=== PATIENT | male | born 1940 | race Caucasian/White ===

== ENCOUNTER → 2017-03-09 | Outpatient (CLI) | payer OTHER ==
[~2017-03-09] VITALS: Ht 185.4 cm; Wt 126.1 kg
[~2017-03-09] MED LIST: ACAMPROSATE CA333 MG PO; ALLOPURINOL; ALLOPURINOL 30300 M2 PO; ALLOPURINOL 30300 M3 PO; AMBIEN 5 MG TABL5 M1 PO; APAP650 PO; ATENOLOL; ATENOLOL 50 MG50 M1 PO; AVAPRO; AVAPRO300 MG PO; CARDURA4 MG PO; CARISOPRODOL 3350 MG PO; CENTRUM SILVER1 EAC4 PO; COUMADIN 5 MG TA5 M1 PO; COUMADIN7.5 MG PO; FISH OIL 1,0001 EAC7 PO; FISH OIL 1,001000 M1 PO; FISH OIL 1,2001 EAC5 PO; FLEXERIL PO; GLUCOPHAGE500 MG PO; HYDROCHLOROTH12.5 M1 PO; HYDROCHLOROTH12.5 MG PO; HYDROCODON-ACE1 EAC5 PO; HYDROCODONE-AP1 EAC6 PO; MELATONIN10 M2 PO; MOBIC7.5 MG PO; NORCO 10-325 T1 EACH PO; PRILOSEC40 MG PO; SIMVASTATIN40 MG PO; TUMS PO; TYLENOL P.M. E1 EAC3 PO; TYLENOL PM PO; VALSARTAN-HCTZ1 EAC4 PO; VITAMIN B-12500 MCG PO; VITAMIN D1000 UNI1 PO; VOLTAREN GEL 1100 G1 TOP; VOLTAREN100 GM TP; ZANAFLEX2 M2 PO; ZANAFLEX4 MG PO; ZEGERID 20 MG1 EACH PO
--- NOTE | ~2017-03-09 | HPC ---
[facility] [place] [address] PAIN MANAGEMENT CONSULTATION Name: CINTHYA SORENSON Room #: REG KIEL Stark#: [id number] Admission: 03/09/17 Attend Phys: Tr Razo DO Discharge: Date of : 39 Report #: [id number] THIS REPORT FOR: //name// CC: Leo Razo SUBJECTIVE: The patient is a very pleasant 76-year-old gentleman, well known to the pain clinic, being treated for many years for lumbar radiculopathy, myofascial pain requiring complex medication management. Last seen in the pain clinic on 10/09/2016, was given a prescription for 90 hydrocodone 5/325. He returns to the pain clinic today, we had a moderately prolonged visit from [id number]. Greater than 50% of this time spent counseling the patient. 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 I did run a K-TRACS and noted no opiate prescriptions for the patient. Again, I believe he does live in [place] and fills those prescriptions in [place]. Nonetheless, he presents to the pain clinic today noting recurrent pain in the back and left shoulder, remains problematic, though is well controlled. He uses hydrocodone on a nondaily basis. Voltaren gel topically has been quite efficacious. He takes Coumadin for atrial fibrillation, contraindicating oral use of nonsteroidal anti-inflammatory medications. 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 He states he is working for 4 or 5 days a week, on his feet a great deal and states he is doing reasonably well from a pain standpoint. States walking has never been a very good exercise for him. He is having more trouble rising from a chair without using the armrest and lifting his leg to tie his shoes. We talked about exercises including simply marching in place, both from sitting and standing positions for increased strength in hip flexion. The patient does have an exercise device, which sounds somewhat like a NordicTrack, type of exercise involving the arms and legs. I suggested he continue with that exercise endeavor. We reviewed the fact that opiate medications are being used to provide analgesia adequate to support activities of daily living, not attempting to achieve a specific pain score on the 0-10 Visual Analog Scale. The current opiate medications are providing sufficient analgesia to allow the patient to participate in activities of daily living. The patient is not exhibiting any aberrant behavior suggestive of drug diversion. The patient is not having any adverse reactions to medications. The patient is not suffering from daytime somnolence or mental acuity changes. The patient is managing opiate-induced constipation with appropriate pwog-ysr-mxdqpsy agents and dietary considerations. The patient was counseled on concern for caution with operating a motor vehicle while using opiate medications. A physical exam was performed and the patient's functional status was evaluated. [address] [address] PAIN MANAGEMENT CONSULTATION Name: CINTHYA SORENSON Room #: REG KIEL Stark#: [id number] Admission: 03/09/17 Attend Phys: Tr Razo DO Discharge: Date of : 39 Report #: [id number] All patients with back pain were advised against the bed rest greater than 4 days and were advised to return to normal activities. Pain score assessment was noted and the treatment plan was reviewed with the patient. All current medications, both prescribed and OTC were reviewed and reconciled on the electronic medical record. Tobacco screening was accomplished and smoking cessation was advised when indicated. BMI was noted and diet/exercise modification was recommended for all patients following outside normal parameters. I reviewed with the patient today their responsibilities to safeguard prescription medications, reviewed their responsibility to utilize medications only as prescribed by the physician. They are to seek and receive pain medications only from 1 physician group ( [facility]). They are to use 1 pharmacy and keep the clinic informed if they change pharmacies. Their responsibilities include making followup visits in a timely fashion and to avoid abrupt discontinuation of medication usage. Their responsibilities further include bringing their medications (bottles from the pharmacy with residual pills) to the visit for possible confirmation of pill counts and the patient understands it is their responsibility to submit to random drug screens to ensure both that the medications prescribed are present, and that no other controlled substances are present. All prescriptions provided today were generated electronically. I did review the opiate zbnxdfp-ww-rjeom contract today. We did get a urine drug screen today. No aberrant behavior is suggestive for drug diversion, simply complying with the opiate zyybvrr-bq-rmcma contract. PHYSICAL EXAMINATION: Otherwise, relatively unremarkable. GENERAL: Modest hypertension, alert and oriented to person, place, and time, judged to be a reasonable historian. Loquacious gentleman, modestly overweight with a BMI of approximately 34 kg per m sq. EXTREMITIES: Upper extremity strength is preserved. pain in the left shoulder, modest limitation in range of motion. Rises from chair using the armrest. Gait is mildly antalgic. Again, does have a little decrease in left and right hip flexion strength. Lumbar flexion is modestly limited, diffuse tenderness across the low back. No discrete trigger points are noted. Gait is otherwise tandem. 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 Urine drug screen was accomplished today. Opiate jalcrwy-tn-ydqdi contract was reviewed. Discharged in good and stable condition after approximately 25-minute visit, [id number]. By: [id number] Tr Razo DO /nt
[2017-03-09 12:46] VITALS: BP 164/73
== END | disposition home or self-care (01) ==
LOC: PAIN 06:54
DX: M54.16 Radiculopathy, lumbar region (principal); M79.1 Myalgia; G89.29 Other chronic pain

== ENCOUNTER 2017-08-16 08:01 | Emergency (ER) | payer OTHER ==
[~2017-08-16] VITALS: Ht 185.4 cm; Wt 121.6 kg
[2017-08-16] MEDS ORDERED: PENICILLIN V P500 MG PO (09:30)
[2017-08-16] MEDS ORDERED: NORCO 5-325 TA1 EACH PO (09:30)
== END 2017-08-16 09:39 | disposition home or self-care (01) ==
LOC: ER 08:01
DX: K04.7 Periapical abscess without sinus (principal); M19.90 Unspecified osteoarthritis, unspecified site; I10 Essential (primary) hypertension; E11.9 Type 2 diabetes mellitus without complications; E78.00 Pure hypercholesterolemia, unspecified; M10.9 Gout, unspecified; I48.91 Unspecified atrial fibrillation; Z90.49 Acquired absence of other specified parts of digestive tract

== ENCOUNTER → 2017-11-12 | Outpatient (CLI) | payer OTHER ==
[~2017-11-12] VITALS: Ht 185.4 cm; Wt 125.8 kg
[~2017-11-12] MED LIST changes: +NORCO 5-325 TA1 EACH PO; +PENICILLIN V P500 MG PO
--- NOTE | ~2017-11-12 | HPC ---
[facility] [place] [address] PAIN MANAGEMENT CONSULTATION Name: CINTHYA SORENSON Room #: REG [facility] Mi#: [id number] Admission: 11/12/17 Attend Phys: Tr Razo DO Discharge: Date of : 39 Report #: [id number] THIS REPORT FOR: //name// CC: Leo Razo The patient is a 77-year-old gentleman long known to the pain clinic, being treated for lumbar radiculopathy, myofascial pain, axial back pain requiring high risk complex medication management. The patient had been managed with hydrocodone on fairly aggressive dosing. He had been drinking concurrently unbeknownst to me. Ultimately, he was somewhat lost to follow up. He got sober a year and a half ago. He voluntarily admitted himself to rehabilitation. I ran a K-TRACS when I saw him in February (he had prior been seen in 09/2016). K-TRACS was unremarkable. Physical exam was compatible with lumbar radiculopathy, myofascial pain and chronic axial pain. We did a urine drug screen at that time, which was negative for all opiates and negative for alcohol. I elected to start the patient on low dose hydrocodone 5/325, gave the patient prescription for 90 tablets. He returns to the pain clinic today. He still has a few hydrocodone left. He takes them infrequently. He notes that they are helpful for significant back pain. He notes the pain is exacerbated with bending forward. He notes he can lift reasonably well. No acute SI pain at this time. Some episodic left shoulder pain continues. He uses Coumadin for atrial fibrillation hence oral anti-inflammatories are contraindicated though he does use Voltaren gel topically with efficacy. The patient notes subjective pain score today is a 3.5 on a VAS. Pain primarily low back, some left arm pain, which is new. Low back pain is chronic. PHYSICAL EXAMINATION: Shows a 77-year-old gentleman with BMI is 36.6 kilograms per meter squared. Blood pressure 161/66, pulse 55, respirations 16. Cranial nerves 2 through 12 are grossly intact. He is alert and oriented to person, place and time and judged to be a reasonable historian. Upper extremity strength is actually fairly symmetric. Range of motion is good. He has some diffuse tenderness around the deltoid, but no discrete trigger points are noted. Rises from chair using arm rest. Diffuse axial back pain, lumbar radiculopathy, symptoms are relatively quiescent at this time. We reviewed the fact that opiate medications are being used to provide analgesia adequate to support activities of daily living, not attempting to achieve a specific pain score on the 0-10 Visual Analog Scale. The current opiate medications are providing sufficient analgesia to allow the patient to participate in activities of daily living. The patient is not exhibiting any [address] [address] PAIN MANAGEMENT CONSULTATION Name: CINTHYA SORENSON Martha Room #: REG KIEL Stark#: [id number] Admission: 11/12/17 Attend Phys: Tr Razo DO Discharge: Date of : 39 Report #: [id number] aberrant behavior suggestive of drug diversion. The patient is not having any adverse reactions to medications. The patient is not suffering from daytime somnolence or mental acuity changes. The patient is managing opiate-induced constipation with appropriate fyrj-sdz-zyqfqub agents and dietary considerations. The patient was counseled on concern for caution with operating a motor vehicle while using opiate medications. A physical exam was performed and the patient's functional status was evaluated. All patients with back pain were advised against the bed rest greater than 4 days and were advised to return to normal activities. Pain score assessment was noted and the treatment plan was reviewed with the patient. All current medications, both prescribed and OTC were reviewed and reconciled on the electronic medical record. Tobacco screening was accomplished and smoking cessation was advised when indicated. BMI was noted and diet/exercise modification was recommended for all patients following outside normal parameters. I reviewed with the patient today their responsibilities to safeguard prescription medications, reviewed their responsibility to utilize medications only as prescribed by the physician. They are to seek and receive pain medications only from 1 physician group ( [facility]). They are to use 1 pharmacy and keep the clinic informed if they change pharmacies. Their responsibilities include making followup visits in a timely fashion and to avoid abrupt discontinuation of medication usage. Their responsibilities further include bringing their medications (bottles from the pharmacy with residual pills) to the visit for possible confirmation of pill counts and the patient understands it is their responsibility to submit to random drug screens to ensure both that the medications prescribed are present, and that no other controlled substances are present. All prescriptions provided today were generated electronically. ASSESSMENT: Lumbar radiculopathy, axial back pain, myofascial pain component, requiring high risk complex medication management, stable on baseline medication. RECOMMENDATION: Renew p.r.n., hydrocodone 5/325, I have taken the liberty of writing for 90 tablets. This should last about 4 months. We will renew Voltaren gel for topical use. Follow up as needed. By: [id number] Tr Razo, DO /nt
[2017-11-12 12:43] VITALS: BP 161/66
== END ==
LOC: PAIN 07:12
DX: M54.16 Radiculopathy, lumbar region (principal); M79.1 Myalgia; I48.91 Unspecified atrial fibrillation; Z79.899 Other long term (current) drug therapy; Z79.01 Long term (current) use of anticoagulants

== ENCOUNTER → 2018-05-11 | Outpatient (CLI) | payer OTHER | LOC: CAT 11:47 | DX: I25.10 Atherosclerotic heart disease of native coronary artery without angina pectoris (principal); J98.4 Other disorders of lung; Z90.49 Acquired absence of other specified parts of digestive tract ==

== ENCOUNTER → 2018-06-11 | Outpatient (CLI) | payer OTHER ==
[~2018-06-11] VITALS: Ht 185.4 cm; Wt 125.5 kg
[~2018-06-11] MED LIST changes: +MEDROLDOSEPACK PO
--- NOTE | ~2018-06-11 | HPC ---
[facility] [place] [address] [address] [place] [address] PAIN MANAGEMENT CONSULTATION Name: YASCINTHYA Martha Room #: REG KIEL Mi#: [id number] Admission: 06/11/18 Attend Phys: Angie Batres MD Discharge: Date of : 39 Report #: [id number] THIS REPORT FOR: //name// CC: Angie Vinson DATE OF SERVICE: 06/11/2018 FOLLOWUP COMPLAINT: "Pain in the right side of my leg, which is bad when I am walking." FOLLOWUP HISTORY: The patient is a 77-year-old gentleman who has been followed in the pain clinic by Mayank Razo. This is my first visit with the patient. He states that he is having pain and discomfort in his back in the past. He has undergone injections by Dr. Razo. That had been helpful. At this juncture, he is having pain and discomfort radiating down the right side of his leg near his knee. Certain movements of his leg can exacerbate the pain and caused it to become quite problematic. Notes that the pain is worse when he is going from a sitting to a standing position. Movement and changing positions such as rolling over in bed can be problematic as well. Notes that the pain has gotten a bit worse over the last 3-4 weeks. He is having pain, which is so severe. He is unable to bend over to tie his shoe. He finds that the diclofenac medication is helpful. He does have a history of osteoarthritis, but no history of rheumatoid arthritis. ALLERGIES: No known drug allergies. MEDICATIONS: Hydrocodone 5/325 one p.o. t.i.d., Voltaren gel 1% to the affected topical areas q.i.d., acetaminophen 750 mg 1 tablet daily, warfarin 5 mg, he takes 6 mg daily, fish oil, vitamin B12 500 mcg, vitamin D 1000 units, multivitamin, Centrum, valsartan/hydrochlorothiazide 320/12.5, Cardura 4 mg, allopurinol 300 mg, Prilosec 40 mg, Zocor 40 mg, atenolol 50 mg, Glucophage 500 mg daily. PAST MEDICAL HISTORY: Atrial fibrillation, history of rheumatic fever, diabetes, hypertension, joint disease/arthritis, history of myofascial pain, sacroiliac joint dysfunction. History of symptomatic lumbar radiculopathy, lumbar spondylosis, and atrial fibrillation. SOCIAL HISTORY: He is a retired with [employer]. Moved to [place]. 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 LABORATORY DATA: On 08/07/2007, shows facet arthropathy and ligamentum thickening causing mild spinal stenosis at L3-L4 and moderate spinal stenosis at L4-L5 with some inferior foraminal narrowing at this level. No lateralizing disk herniation or high grade spinal stenosis identified at any level. A 0.[address] [address] PAIN MANAGEMENT CONSULTATION Name: CINTHYA SORENSON Martha Room #: [id number] Admission: 06/11/18 Attend Phys: Angie Batres MD Discharge: Date of : 39 Report #: [id number] hyperintense focus in the right sacral ala, which is indeterminate on this study. CT of the abdomen and pelvis dated 09/02/2009 revealed numerous diverticula in the descending colon and sigmoid colon. Sigmoid colon is redundant with no evidence of inflammation or abscess or free air. PAIN CLINIC ASSESSMENT: 1. History of osteoarthritis involving his low back. 2. The patient denies being treated for rheumatoid arthritis. 3. Height 6 feet 1 inch, weight 276 pounds, BMI is 36. 4. Vital signs: Blood pressure 176/80, pulse 87, respiratory rate 18, room air saturation 98%. 5. Pain intensity 08/02. 6. Fall risk. The patient has not fallen in the last 3 months. 7. Blood thinner. The patient has a history of atrial fibrillation and is using Coumadin. 8. Hypertension. The patient is being treated for hypertension. 9. Opioid therapy greater than 6 weeks. The patient is receiving opioid medications intermittently from the pain clinic. 10. Risk assessment tool. 11. Functional assessment tool. 12. Recreational drug use. The patient denies use of recreational drugs. 13. Tobacco: The patient denies use of tobacco. 14. Alcohol use. 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 PHYSICAL EXAMINATION: GENERAL: The patient is a well-developed, somewhat obese white male, appears his stated age. He is alert and oriented x 3. He is quite loquacious. He appears his stated age. HEENT: Normocephalic, atraumatic. Extraocular eye muscles intact. Sclerae nonicteric. Hearing is within normal limits. Mucous membranes are moist. NECK: Without adenopathy or JVD. LUNGS: Clear to auscultation. ABDOMEN: Protuberant. HEART: Regular rate upper extremity in the Upper extremity muscle strength is judged to be 5/5 for the major muscle groups without neurologic compromise. The patient has some difficulty moving from his chair to the examination table. When going from a sitting to a standing position he complains of pain and discomfort in the right lateral area near his knee. This is near the tensor fascia lorie on the ____ area. Palpation in this area can reproduce a significant component of pain. The patient is not experiencing pain which is in the traditional lumbar radicular fashion in the L5-S1 area. He denies that this pain for more than about 3-4 weeks. Denies any trauma. He has a plethora of varicose veins on the anterior calf area. He complains of difficulty leaning forward for enough to put his shoe. He notes worsening of his pain and discomfort if he lifts his foot up greater than 6 inches. [facility] [address] [place] [address] PAIN MANAGEMENT CONSULTATION Name: CINTHYA SORENSON Martha Room #: REG [facility]#: [id number] Admission: 06/11/18 Attend Phys: Angie Batres MD Discharge: Date of : 39 Report #: [id number] IMPRESSION: 1. Right pain in the area of the lateral tensor fascia lorie area down to the right knee. Palpation in this area does cause a reproduction of pain and discomfort. The patient does not have a clear-cut dermatomal distribution of his pain. The patient does have some pain and discomfort in the low back area. Palpation in this area near the posterior superior iliac spine areas are somewhat sore. The patient rates his pain as a 9/0. The patient notes increased pain and discomfort when lying on the left lateral decubitus position. Straightening and bending his leg can reproduce pain and discomfort in the lateral portion of his right knee. 2. Pain and discomfort in the right lateral knee. Possible myofascial component. 3. History of axial back pain. 4. History of lumbar radiculopathy. 5. Myofascial pain. 6. History of ethanol habituation, has not used since 2014. RECOMMENDATIONS: We discussed treatment options with the patient. He will return to the pain clinic at which time we will evaluate his right knee area for possibility of injection. We will try a Medrol Dosepak at this juncture. He has also been given Voltaren gel to apply to the affected areas. He states that the [place] 5 mg t.i.d. is helpful as well. He has been using these very sparingly. We would like to thank you for letting us participate in his care. We hope he continues to improve. By: [id number] Angie Batres MD /lana
[2018-06-11 10:14] VITALS: BP 176/80
== END ==
LOC: PAIN 06:49
DX: M79.604 Pain in right leg (principal); M79.1 Myalgia; I10 Essential (primary) hypertension; E11.9 Type 2 diabetes mellitus without complications; I48.91 Unspecified atrial fibrillation

== ENCOUNTER → 2018-09-03 | Outpatient (CLI) | payer OTHER ==
[~2018-09-03] VITALS: Ht 185.4 cm; Wt 126.9 kg
--- NOTE | ~2018-09-03 | HPC ---
[facility] [place] [address] PAIN MANAGEMENT CONSULTATION Name: YASCINTHYA Martha [facility] #: [facility] [id number] Admission: 09/03/18 Attend Phys: Angie Batres MD Discharge: Date of : 39 Report #: [id number] THIS REPORT FOR: //name// CC: Angie Vinson DATE OF SERVICE: 09/03/2018 CHIEF COMPLAINT: Pain in the low back area. I am unable to bend over and tie my shoe because of the back pain. HISTORY OF PRESENT ILLNESS: The patient is a 77-year-old gentleman, who has been followed in the pain clinic. He has noted some pain and discomfort in his low back area. He states that he has noted some increased pain in his back. He is unable to bend over to tie his shoe. His has to put his socks on. He notes that his pain is exacerbated by this discomfort. He rates it as a 3/10 at this juncture. He denies any new trauma. It involves his right low back area and right side. He notes some pain in his right knee and right leg. He notes that this has been chronic. He has stopped taking his Coumadin and has an INR of 1.1 with the thought of undergoing an injection. He has had SI joint injections in the past and found that they were beneficial. He notes that the pain is worse with walking, bending, standing, and getting up and down. He has difficulty moving from a chair to a standing position as well as using the bathroom, getting of stool. CURRENT MEDICATIONS: The patient is on hydrocodone 5/325 one p.o. t.i.d., Voltaren gel 1% to the affected area topically q.i.d., acetaminophen 750 mg 1 p.o. daily, warfarin 5 mg, the patient has not taken this for the last few days; fish oil, vitamin B12 500 mcg, vitamin D 1000 units, multivitamin, Centrum, valsartan/hydrochlorothiazide 320/12.5, Cardura 4 mg, allopurinol 300 mg, Prilosec 40 mg, Zocor 40 mg, atenolol 50 mg, and Glucophage 500 mg daily. ALLERGIES: The patient has no known drug allergies. PAIN CLINIC ASSESSMENT AND PQRS: 1. History of osteoarthritis involving his low back. 2. The patient is not being treated for rheumatoid arthritis. 3. Pain intensity is 3/10. 4. Fall risk. The patient has not fallen in the last 3 months. 5. Blood thinner. The patient is on Coumadin, has stopped taking this medication for the last few days. 6. Hypertension. The patient is being treated for hypertension. 7. Opiate therapy greater than 6 weeks. The patient is receiving medications from 1 source, pain clinic. 8. Risk assessment tool 6, moderate risk for use of opioid medication. 9. Functional assessment tool, . [address] [address] PAIN MANAGEMENT CONSULTATION Name: YASCINTHYA Room #: REG CLhSakir Stark#: [id number] Admission: 09/03/18 Attend Phys: Angie Batres MD Discharge: Date of : 39 Report #: [id number] 10. Recreational drug use. The patient denies use of recreational drugs. 11. Alcohol: The patient use alcohol in the past. 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 12. Tobacco: The patient denies use of tobacco at this juncture. PHYSICAL EXAMINATION: GENERAL: The patient is a well-developed and well-nourished white male. He appears his stated age. He is alert and oriented. He is somewhat obese. His is with him. He is somewhat loquacious. He and his appear to get along quite well. Height is 6 feet 1 inch, weight is 279 pounds, and BMI is 36.9. VITAL SIGNS: Blood pressure is 155/83, pulse is 57, respiratory rate is 22, and room air saturation is 96%. HEENT: Normocephalic, atraumatic. Extraocular eye muscles intact. Sclerae nonicteric. Hearing is within normal limits. Mucous membranes are moist. NECK: Without adenopathy or JVD. LUNGS: Clear to auscultation. ABDOMEN: Protuberant. Bowel sounds present. HEART: Regular rate. EXTREMITIES: Upper extremity muscle strength is judged to be 5/5 for the major muscle groups. The patient has pain and discomfort in lower portion of his back. He has pain in the area of the left and right paraspinous area at approximately L5-S1. Palpation in this area does cause some reproduction of pain and discomfort. The patient jumps with palpation in this area with noted signs of trigger points. The patient uses hands to go from a sitting to a standing position. He is unable to lean forward touch his toes. He notes significant pain and discomfort with this. IMPRESSION: 1. Myofascial pain, left and right posterior superior iliac spine areas near the gluteus rupert and latissimus dorsi. 2. Pain and discomfort in the right lateral knee, possible myofascial pain. 3. History of axial back pain. 4. History of lumbar radiculopathy. 5. 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 RECOMMENDATIONS: We have discussed treatment options with the patient and his . He has pain and discomfort in the left and right posterior superior iliac spine area. The patient was placed on the examination table perpendicular to it. A chair was placed under his feet. The table was elevated. The patient has leaned forward. Palpation in the area of the left and the right posterior superior iliac spine areas cause the patient to jump with palpation of these areas. He states that both were extremely sore and problematic and seem to be the problem in nidus of his pain at this juncture. Possible complications of a trigger point injection were discussed. A model was used to indicate the area of probable pathology. The patient elects to proceed. [address] [address] PAIN MANAGEMENT CONSULTATION Name: YASCINTHYA Room #: REG [facility] Mi#: [id number] Admission: 09/03/18 Attend Phys: Angie Batres MD Discharge: Date of : 39 Report #: [id number] PROCEDURE NOTE: The patient was placed in the sitting position. His back was sterilely prepped with chlorhexidine solution and it was allowed to dry. Palpation in the right area near the posterior superior iliac spine in the area of the gluteus rupert and latissimus dorsi were palpated. The patient noted a trigger point. A 25-gauge needle was advanced into the area. The patient did reproduce the trigger point complaint. A total of 10 mL of 0.5% bupivacaine and 80 mg of Depo-Medrol was injected. The patient tolerated that area and trigger point injection well. The contralateral left side was then sterilely prepped. It was treated in a like fashion. A 25-gauge needle was advanced into the area of the gluteus rupert posterior superior iliac spine near the latissimus dorsi. Trigger point was noted. Aspiration was negative. A total of 10 mL of 0.5% bupivacaine and 80 mg of Depo-Medrol was injected. The patient remained in the pain clinic for an appropriate amount of time. His pain has decreased to 0 at the time of discharge. He will monitor his blood sugars. He has diabetes. We would like to thank you for letting us to participate in his care. We hope he continues to improve. <ELECTRONICALLY SIGNED> By: Angie Batres MD 09/06/18 1125 [id number] Angie Batres MD /[facility]
[2018-09-03 13:23] VITALS: BP 155/83
== END | disposition home or self-care (01) ==
LOC: PAIN 07:06
DX: M79.10 Myalgia, unspecified site (principal); M54.16 Radiculopathy, lumbar region; M19.90 Unspecified osteoarthritis, unspecified site; Z98.890 Other specified postprocedural states; Z79.01 Long term (current) use of anticoagulants; Z79.899 Other long term (current) drug therapy; Z79.891 Long term (current) use of opiate analgesic; Z79.84 Long term (current) use of oral hypoglycemic drugs

== ENCOUNTER → 2019-04-20 | Outpatient (CLI) | payer OTHER ==
[~2019-04-20] VITALS: Ht 185.4 cm; Wt 125.8 kg
[~2019-04-20] MED LIST changes: +HYDROCODON-ACE1 EAC7 PO; +VOLTAREN GEL 1100 G2 TOP
[2019-04-20 10:52] VITALS: BP 139/73
--- NOTE | 2019-04-20 11:04 | NUR ---
Pain Clinic Assessment: 1. History of Osteoarthritis: B/L KNEE'S History of Rheumatoid Arthritis: NO 2. Height: 6 ft. 1 in. 185.4 cm. Weight: 277.4 lb. oz. 125.828 kg. Patient's BMI: 36.6 3. Vital Signs: BP: 139/73 Pulse: 70 Resp: 20 Temp: 02 Sat: 97 ECG Mon: 4. Pain Intensity: 3-4 5. Fall Risk: Dizziness: N Needs help standing or walking: N Fallen in the last 3 months: N Fall risk comments: 6. Patient on Blood Thinner: Warfarin (Coumadin) 7. History of Hypertension: Y 8. Opioid Therapy greater than 6 weeks: Y Opiate Contract Signed: 03/09/17 9. Risk Assessment Tool Provided: 6-MOD RISK 10. Functional Assessment Tool: 11. Recreational Drug Use: Never Drug Type: Tobacco Use: Never Smoker Tobacco Type: Amount or Packs/day: How Many Years: Alcohol Use: Past use Frequency: Quant:
--- NOTE | 2019-04-21 09:04 | HPC ---
[facility] [address] [place] [address] PAIN MANAGEMENT CONSULTATION Name: CINTHYA SORENSON Martha Room #: REG [facility] Mi#: [id number] Admission: 04/20/19 ������������������ Attend Phys: Tatiana Woodward Discharge: ������������������ Date of : 39 Report #: [id number] THIS REPORT FOR: //name// CC: Tatiana Woodward Leo Vinson DATE OF SERVICE: 04/20/2019 CHIEF COMPLAINT: Low back pain and right leg pain. HISTORY OF PRESENT ILLNESS: This is a very pleasant 78-year-old gentleman who returns to the pain clinic today for a refill of his medication. He tells me that he has ongoing low back pain, mostly on the right side that does radiate into his right leg to his knee. He tells me it is achy, sharp pain that he rates as 3-4, worse with walking and standing, but his medication and injections that he has periodically are very helpful in controlling his pain. 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 Those are the days that he requires a few more pain pills for his back and neck. Otherwise, some days, he is able to get by with a few less pills. He tells me that he has no problems with constipation or daytime sleepiness. ALLERGIES: No known drug allergies. CURRENT LIST OF MEDICATIONS: Hydrocodone 5/325 t.i.d. p.r.n., diclofenac gel 4 times a day, Coumadin 5 mg daily, fish oil, vitamin B12, vitamin D3, multivitamin, valsartan 320 mg daily, Cardura 4 mg daily, allopurinol 300 mg daily, Prilosec 40 mg daily, Zocor 40 mg daily, atenolol 50 mg daily and metformin 500 mg daily. PQRS: 1. The patient has osteoarthritis in his bilateral knees and also in his back. He denies any rheumatoid arthritis. 2. Height is 6 feet 1 inch, weight is 277. BMI is 36. 3. Vital signs: Blood pressure 139/73, pulse is 70, respirations 20, oxygen sat is 97%. 4. Pain score is 3-4. 5. Denies dizziness. Does not need help walking or standing. He has not fallen in the last 3 months. 6. The patient is on Coumadin and does take medication for hypertension. 7. Opioid therapy is greater than 6 weeks; therefore, an opioid signed contract is on the chart. His risk assessment tool is moderate. His functional assessment is 41/70. 8. Recreational drug use, he denies. He is not a smoker and does not drink alcohol. We did check the prescription monitoring system[place] [address] PAIN MANAGEMENT CONSULTATION Name: CINTHYA SORENSON Room #: REG CLShakir Stark#: [id number] Admission: 04/20/19 ������������������ Attend Phys: Tatiana Woodward Discharge: ������������������ Date of : 39 Report #: [id number] appropriately for his medications in a timely fashion. We did check a drug screen on this patient today for random screen as it had been greater than 1 year. PHYSICAL EXAMINATION: GENERAL: This is a well-developed, well-nourished white male who appears his stated age, placing his current pain score today at 3-4/10. He is quite loquacious in his speech, which is very fluent. He is alert and orientated. HEENT: Normocephalic, atraumatic. Extraocular eye muscles are intact. Hearing is within normal limits. Mucous membranes are moist. NECK: Without adenopathy or JVD. EXTREMITIES: Upper extremity strength judged to be 5/5 in all major muscle groups. Does complain of some slight shoulder discomfort today. The patient is able to move from sitting to standing without difficulty. He has tenderness across his lumbar spine. His lower extremity strength is judged to be 5/5 in all major muscle groups. IMPRESSION: 1. Myofascial pain. 2. Pain in lumbar radiculopathy. 3. History of axial back pain. 4. Complex medical management under terms of written opioid agreement. We reviewed the fact that opiate medications are being used to provide analgesia adequate to support activities of daily living, not attempting to achieve a specific pain score on the 0-10 Visual Analog Scale. The current opiate medications are providing sufficient analgesia to allow the patient to participate in activities of daily living. The patient is not exhibiting any aberrant behavior suggestive of drug diversion. The patient is not having any adverse reactions to medications. The patient is not suffering from daytime somnolence or mental acuity changes. The patient is managing opiate-induced constipation with appropriate [id number] agents and dietary considerations. The patient was counseled on concern for caution with operating a motor vehicle while using opiate medications. A physical exam was performed and the patient's functional status was evaluated. All patients with back pain were advised against the bed rest greater than 4 days and were advised to return to normal activities. Pain score assessment was noted and the treatment plan was reviewed with the patient. All current medications, both prescribed and OTC were reviewed and reconciled on the electronic medical record. Tobacco screening was accomplished and smoking cessation was advised when indicated. BMI was noted and diet/exercise modification was recommended for all patients following outside normal parameters. I reviewed with the patient today their responsibilities to [facility] [address] [address] PAIN MANAGEMENT CONSULTATION Name: CINTHYA SORENSON Room #: REG [facility]#: [id number] Admission: 04/20/19 ������������������ Attend Phys: Tatiana Woodward Discharge: ������������������ Date of : 39 Report #: [id number] prescription medications, reviewed their responsibility to utilize medications only as prescribed by the physician. They are to seek and receive pain medications only from 1 physician group ( [facility]). They are to use 1 pharmacy and keep the clinic informed if they change pharmacies. Their responsibilities include making followup visits in a timely fashion and to avoid abrupt discontinuation of medication usage. Their responsibilities further include bringing their medications (bottles from the pharmacy with residual pills) to the visit for possible confirmation of pill counts and the patient understands it is their responsibility to submit to random drug screens to ensure both that the medications prescribed are present, and that no other controlled substances are present. All prescriptions provided today were generated electronically. PLAN: 1. We discussed treatment options with the patient today. The patient feels that the Voltaren gel and the hydrocodone are quite helpful in relieving his pain. Refills given today for hydrocodone 5/325 #90 t.i.d., which is 50 morphine milliequivalent according to the CDC guidelines, way below their limit of 50; therefore, 3 months of medications were given for him. Second medication of Voltaren gel 3 tubes with 3 additional refills. The patient uses this on his lower extremity joints. 2. Dr. Tee Batres did come and see the patient today and collaborated care as well. The patient will return in 3 months' time for refill of medications unless he requires an injection prior to that time. ��������������������������������������������� <ELECTRONICALLY SIGNED> ���������������������������������������� By: Tatiana Woodward ��������������������������������������������� 04/21/19 0904 [id number] [id number] Tatiana Woodward /nt
== END ==
LOC: PAIN 06:48
DX: M79.18 Myalgia, other site (principal); M54.16 Radiculopathy, lumbar region; M79.604 Pain in right leg; Z79.891 Long term (current) use of opiate analgesic; Z79.899 Other long term (current) drug therapy

== ENCOUNTER 2019-08-25 09:44 | Emergency (ER) | payer OTHER ==
[~2019-08-25] VITALS: Ht 185.4 cm; Wt 126.1 kg
[2019-08-25 10:12] LABS: ANION GAP 9 mmol/L (7-16); BUN 17 mg/dL (7-18); CALCIUM 9.5 mg/dL (8.5-10.1); CHLORIDE 95 mmol/L (98-107); CO2 27 mmol/L (21-32); CREATININE 1.1 mg/dL (0.7-1.3); GLUCOSE 152 mg/dL (74-106); INR 1.3; PROTIME 13.5 Seconds (9.3-11.4); SODIUM 131 mmol/L (136-145)
[2019-08-25 10:13] LABS: HEMATOCRIT 39.6 % (42.0-52.0); HEMOGLOBIN 13.2 gm/dL (14.0-18.0); MCH 34.7 pg (26.0-34.0); MCHC 33.3 g/dL (28.0-37.0); MCV 104.4 fL (80.0-100.0); RBC 3.8 mil/uL (4.50-6.00); RDW 13.9 % (10.5-14.5); WBC 4.4 thou/uL (4.0-11.0)
[2019-08-25 10:22] LABS: ALBUMIN 4.2 g/dL (3.4-5.0); DIRECT BILIRUBIN 0.5 mg/dL (<0.1-0.3); LIPASE 104 U/L (73-393); SGOT 39 U/L (15-37); SGPT 21 U/L (30-65); TOTAL BILIRUBIN 2.8 mg/dL (<0.1-1.0); TOTAL PROTEIN 7.7 g/dL (6.4-8.2); TROPONIN-I <0.06 ng/mL (<0.06)
[2019-08-25 11:40] LABS: URINE BILIRUBIN NEGATIVE (Negative); URINE BLOOD NEGATIVE (Negative); URINE CLARITY CLEAR; URINE COLOR YELLOW; URINE GLUCOSE-RANDOM* NEGATIVE (Negative); URINE KETONES NEGATIVE (Negative); URINE NITRITE-REFLEX NEGATIVE (Negative); URINE PROTEIN (DIPSTICK) NEGATIVE (Negative); URINE UROBILINOGEN 0.2 E.U./dl (0.2-1.0)
[2019-08-25 11:43] LABS: URINE LEUKOCYTES-REFLEX 1+ (Negative)
[2019-08-25 11:50] LABS: CASTS None Seen /LPF (None Seen); CRYSTALS None Seen /LPF (None Seen); SQUAMOUS 4-10 Moderate /LPF (0-3); URINE RBC 0-2 Rare /HPF (0-2); URINE WBC-REFLEX 0-5 Rare /HPF (0-5)
[2019-08-25 12:31] VITALS: BP 168/51
--- NOTE | 2019-08-25 12:54 | EKG ---
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1940 Requested By: Maximino Thomas Order Number: [id number] MD: Leon Leung Measurements Intervals [place] Rate: 56 P: PA: QRS: -50 QRSD: 148 T: 8 QT: 488 QTc: 472 Interpretive Statements Atrial fibrillation RBBB and LAFB Left ventricular hypertrophy Compared to ECG 02/26/2016 10:42:36 Left anterior fascicular block now present Left-axis deviation no longer present Electronically Signed On 08-25-2019 12:54:37 CDT by Leon Leung [email or web address] <ELECTRONICALLY SIGNED> By: Leon Leung MD 08/25/19 1254 1000 1000 Leon Leung MD /EPI
[2019-09-07] MEDS ORDERED: HYDROCODON-ACE1 EAC7 PO ×2 (09:58→10:11)
[2019-09-07] MEDS ORDERED: NORCO 5-325 TA1 EAC1 PO (09:58)
[2019-09-07] MEDS ORDERED: VOLTAREN GEL 1100 G2 TOP (10:00)
== END 2019-08-25 12:32 | disposition home or self-care (01) ==
LOC: ER 09:44
PROVIDERS: Emergency Medicine
DX: S30.0XXA Contusion of lower back and pelvis, initial encounter (principal); S20.222A Contusion of left back wall of thorax, initial encounter; S60.221A Contusion of right hand, initial encounter; S80.212A Abrasion, left knee, initial encounter; R79.1 Abnormal coagulation profile; M19.90 Unspecified osteoarthritis, unspecified site; I10 Essential (primary) hypertension; E11.9 Type 2 diabetes mellitus without complications; I48.91 Unspecified atrial fibrillation; M10.9 Gout, unspecified; E78.00 Pure hypercholesterolemia, unspecified; Z90.49 Acquired absence of other specified parts of digestive tract; W01.198A Fall on same level from slipping, tripping and stumbling with subsequent striking against other object, initial encounter; Y93.01 Activity, walking, marching and hiking; Y92.003 Bedroom of unspecified non-institutional (private) residence as the place of occurrence of the external cause; Y99.8 Other external cause status

== ENCOUNTER → 2019-09-07 | Outpatient (CLI) | payer OTHER ==
[~2019-09-07] VITALS: Ht 185.4 cm; Wt 130.5 kg
[~2019-09-07] MED LIST changes: +NORCO 5-325 TA1 EAC1 PO
[2019-09-07 09:43] VITALS: BP 167/65
--- NOTE | 2019-09-07 09:49 | NUR ---
Pain Clinic Assessment: 1. History of Osteoarthritis: B/L KNEE'S History of Rheumatoid Arthritis: NO 2. Height: 6 ft. 1 in. 185.4 cm. Weight: 287.6 lb. oz. 130.455 kg. Patient's BMI: 38.0 3. Vital Signs: BP: 167/65 Pulse: 42 Resp: 22 Temp: 02 Sat: 98 ECG Mon: 4. Pain Intensity: 5-6 5. Fall Risk: Dizziness: N Needs help standing or walking: N Fallen in the last 3 months: Y Fall risk comments: 6. Patient on Blood Thinner: Warfarin (Coumadin) 7. History of Hypertension: Y 8. Opioid Therapy greater than 6 weeks: Y Opiate Contract Signed: 03/09/17 9. Risk Assessment Tool Provided: 6-MOD RISK 10. Functional Assessment Tool: 11. Recreational Drug Use: Never Drug Type: Tobacco Use: Never Smoker Tobacco Type: Amount or Packs/day: How Many Years: Alcohol Use: Past use Frequency: Quant:
--- NOTE | 2019-09-08 08:46 | HPC ---
[facility] [address] [address] PAIN MANAGEMENT CONSULTATION Name: CINTHYA SORENSON Martha Room #: [facility] CampusVeronicaVeronica#: [id number] Admission: 09/07/19 Attend Phys: Tatiana Woodward Discharge: Date of : 39 Report #: [id number] THIS REPORT FOR: //name// CC: Tatiana Woodward Leo Vinson DATE OF SERVICE: 09/07/2019 CHIEF COMPLAINT: Low back pain, right thigh and knee pain and left chest wall pain. HISTORY OF PRESENT ILLNESS: This is a very pleasant 78-year-old gentleman who returns to the pain clinic today for refill of his medications. He finds it very beneficial in controlling his pain, rating his pain a 5-6 today. It is slightly elevated because he recently fell tripping over his dog at home, landed on his hand and chest. He did seek medical attention, had no broken bones per his report, but he has significant bruising on his left chest wall to his abdomen as a result of the fall as well as being on blood thinners. 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 Today, he would like a refill on his medications. ALLERGIES: No known drug allergies. CURRENT LIST OF MEDICATIONS: Fish oil, vitamin B12, vitamin D, multivitamin, valsartan-hydrochlorothiazide, Cardura, allopurinol, omeprazole, simvastatin, atenolol, metformin, Coumadin, hydrocodone 5/325 and diclofenac gel. PQRS: 1. He has a history of osteoarthritis in his bilateral knees. Denies any rheumatoid arthritis. 2. Height is 6 feet, weight is 287, BMI is 38. 3. Vital signs 167/65, pulse is 42, respirations 22, oxygen sat is 98. 4. Pain score is 5-6. 5. Denies dizziness, does not need help walking or standing, has fallen in the last 3 months. 6. The patient is on Coumadin and also takes medicine for hypertension. 7. Opioid therapy is greater than 6 weeks; therefore, an opioid signed contract is on the chart. His risk assessment tool is moderate. His functional assessment is 41/70. 8. Denies recreational drug use. He is not a smoker and occasionally uses alcohol. According to the prescription monitoring system, the patient is filling appropriately for his medication and is due for those today. There is also a recent drug screen on the chart that is appropriate as well. [address] [address] PAIN MANAGEMENT CONSULTATION Name: CINTHYA SORENSON Room #: REG [facility]ENTERVeronica#: [id number] Admission: 09/07/19 Attend Phys: Tatiana Woodward Discharge: Date of : 39 Report #: [id number] PHYSICAL EXAMINATION: GENERAL: This is a well-developed, well-nourished 78-year-old gentleman who appears his stated age, placing his current pain score at 5/10 today. He is alert and orientated. HEENT: Normocephalic, atraumatic. Extraocular eye muscles are intact. Hearing is adequate. Mucous membranes are moist. NECK: Without adenopathy or JVD. EXTREMITIES: Lower extremity strength judged to be 5/5 in all major muscle groups in his upper and lower extremities. He has significant bruising on his left chest wall to his abdomen in various stages of healing. He also has ecchymosis area on his right shoulder, has tenderness in his right shoulder as well. ASSESSMENT: 1. Myofascial pain. 2. Lumbar radiculopathy. 3. History of axial back pain. 4. Complicated medical management under terms of written opioid agreement. We reviewed the fact that opiate medications are being used to provide analgesia adequate to support activities of daily living, not attempting to achieve a specific pain score on the 0-10 Visual Analog Scale. The current opiate medications are providing sufficient analgesia to allow the patient to participate in activities of daily living. The patient is not exhibiting any aberrant behavior suggestive of drug diversion. The patient is not having any adverse reactions to medications. The patient is not suffering from daytime somnolence or mental acuity changes. The patient is managing opiate-induced constipation with appropriate klbj-vbq-vuqotmr agents and dietary considerations. The patient was counseled on concern for caution with operating a motor vehicle while using opiate medications. A physical exam was performed and the patient's functional status was evaluated. All patients with back pain were advised against the bed rest greater than 4 days and were advised to return to normal activities. Pain score assessment was noted and the treatment plan was reviewed with the patient. All current medications, both prescribed and OTC were reviewed and reconciled on the electronic medical record. Tobacco screening was accomplished and smoking cessation was advised when indicated. BMI was noted and diet/exercise modification was recommended for all patients following outside normal parameters. I reviewed with the patient today their responsibilities to safeguard prescription medications, reviewed their responsibility to utilize medications only as prescribed by the physician. They are to seek and receive pain medications only from 1 physician group ([facility]). They are to use [address] [address] PAIN MANAGEMENT CONSULTATION Name: CINTHYA SORENSON Room #: REG KIEL Stark#: [id number] Admission: 09/07/19 Attend Phys: Tatiana Woodward Discharge: Date of : 39 Report #: [id number] pharmacy and keep the clinic informed if they change pharmacies. Their responsibilities include making followup visits in a timely fashion and to avoid abrupt discontinuation of medication usage. Their responsibilities further include bringing their medications (bottles from the pharmacy with residual pills) to the visit for possible confirmation of pill counts and the patient understands it is their responsibility to submit to random drug screens to ensure both that the medications prescribed are present, and that no other controlled substances are present. All prescriptions provided today were generated electronically. PLAN: 1. We discussed treatment options with the patient today. The patient continues to be sore from his recent fall. He had to take some additional hydrocodone for this recent injury, but not taking more than his prescribed amount. Scripts given today for hydrocodone 5/325, #90, for today, 4-week and 8-week release. 2. The patient finds the diclofenac gel very beneficial. Scripts given today for 3 tubes with 2 additional refills. Some days he uses that and not any pain medicine per his report. 3. We did discuss his decreased heart rate today. He is considering a pacemaker. 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 His family members have been encouraging him to have one placed, so he will discuss that at that time. 4. The patient denies any problems with constipation. He does take prune juice on a daily basis and denies any overmedication feeling from his hydrocodone. 5. The patient is seen in collaboration with Dr. Tee Batres who did see the patient as well today. <ELECTRONICALLY SIGNED> By: Tatiana Woodward 09/08/19 [id number] Tatiana Woodward /nt
== END ==
LOC: PAIN 07:05
DX: M54.16 Radiculopathy, lumbar region (principal); M79.18 Myalgia, other site; Z88.8 Allergy status to other drugs, medicaments and biological substances; Z79.899 Other long term (current) drug therapy; Z79.84 Long term (current) use of oral hypoglycemic drugs

== ENCOUNTER → 2019-12-14 | Outpatient (CLI) | payer OTHER ==
[~2019-12-14] VITALS: Ht 185.4 cm; Wt 122.5 kg
[2019-12-14 09:43] VITALS: BP 132/67
--- NOTE | 2019-12-14 10:19 | NUR ---
Pain Clinic Assessment: 1. History of Osteoarthritis: B/L KNEE'S History of Rheumatoid Arthritis: NO 2. Height: 6 ft. 1 in. 185.4 cm. Weight: 270.0 lb. oz. 122.472 kg. Patient's BMI: 35.6 3. Vital Signs: BP: 132/67 Pulse: 52 Resp: 16 Temp: 02 Sat: 100 ECG Mon: 4. Pain Intensity: 3-4 5. Fall Risk: Dizziness: N Needs help standing or walking: N Fallen in the last 3 months: N Fall risk comments: 6. Patient on Blood Thinner: Warfarin (Coumadin) 7. History of Hypertension: Y 8. Opioid Therapy greater than 6 weeks: Y Opiate Contract Signed: 03/09/17 9. Risk Assessment Tool Provided: 6-MOD RISK 10. Functional Assessment Tool: 11. Recreational Drug Use: Never Drug Type: Tobacco Use: Never Smoker Tobacco Type: Amount or Packs/day: How Many Years: Alcohol Use: Past use Frequency: Quant:
--- NOTE | 2019-12-21 08:36 | HPC ---
[facility] [address] [address] PAIN MANAGEMENT CONSULTATION Name: CINTHYA SORENSON Room #: REG KIEL BarreraVeronica#: [id number] Admission: 12/14/19 Attend Phys: Angie Batres MD Discharge: Date of : 39 Report #: [id number] THIS REPORT FOR: //name// CC: Angie Vinson DATE OF SERVICE: 12/14/2019 CHIEF COMPLAINT: Pain in the left and right lower back area. HISTORY: The patient is an 79-year-old gentleman who has been followed in the pain clinic. He rates his pain today as a 3-4/10. States that about 3-4 months ago, he tripped over his dog. He continues to have pain in the left and right low back area. It involves his right thigh and upper back. Describes it as chronic. Notes that the pain is worse when he is walking, bending, standing, getting up and down from the chair or the toilet. Notes that his medications are helpful. Pain has improved somewhat when he is sitting down. He has returned today for renewal of his medications. ALLERGIES: No known drug allergies. CURRENT MEDICATIONS: Fish oil, vitamin B12, vitamin D, multivitamins, valsartan/hydrochlorothiazide, Cardura, allopurinol, omeprazole, simvastatin, atenolol, metformin, Coumadin, hydrocodone 5/325 and diclofenac gel. PAIN CLINIC ASSESSMENT AND PQRS: 1. He has a history of osteoarthritis in his knees bilaterally. He is not being treated for rheumatoid arthritis. 2. Height 6 feet 1 inch, weight 270 pounds, BMI is 35.6. 3. Vital signs: Blood pressure 132/67, pulse 52, respiratory rate 16, room air saturation is 100%. 4. Pain intensity 3-4/10. 5. Fall risk. The patient has not fallen recently. 6. Blood thinner. The patient is on a blood thinning medication Coumadin. 7. Hypertension. The patient is being treated for hypertension. 8. Opioids greater than 6 weeks. The patient receives medication from one source, pain clinic. 9. Risk assessment tool, moderate risk. 10. Functional assessment tool . 11. Recreational drug use: The patient denies. 12. Tobacco: The patient has never smoked. 13. Alcohol. The patient denies frequent use of alcoholic beverages. PHYSICAL EXAMINATION: GENERAL: The patient is a well-developed, well-nourished white male, who appears his stated age of [age] years old. He is alert and oriented x 3. His [address] [address] PAIN MANAGEMENT CONSULTATION Name: CINTHYA SORENSON Room #: REG [facility]#: [id number] Admission: 12/14/19 Attend Phys: Angie Batres MD Discharge: Date of : 39 Report #: [id number] affect is appropriate. Speech is fluent. HEENT: Normocephalic, atraumatic. Extraocular eye muscles intact. The patient is wearing glasses. Mucous membranes are moist. NECK: Without adenopathy or JVD. EXTREMITIES: Upper extremity muscle strength judged to be 5/5 for the major muscle groups in the upper extremity. Lower extremity, the patient complains of some pain and discomfort in the low back, right thigh, and upper back area. Bruising from his fall has improved. IMPRESSION: 1. Myofascial pain. 2. Lumbar radicular pain. 3. History of axial back pain. 4. Complicated medical pain management using opioids. RECOMMENDATIONS: We discussed treatment options with the patient. Risks and benefits of an opioid regimen have again been discussed. The patient feels that the medications are helpful. He is aware that opioid medications can become less effective as time goes on. Feels that use of the diclofenac to the upper extremity is beneficial. He is not having any untoward problems with the hydrocodone. His bowel is also doing reasonably well. He keeps his medications in a guarded area. He will continue with the hydrocodone dosing of 5 mg 1 p.o. t.i.d. The patient will call us if he has any problems with the medications. His sensorium is clear. He will call us if he has any concerns with his medication management. We would like to thank you for letting us participate in his care. We hope he continues to improve. <ELECTRONICALLY SIGNED> By: Angie Batres MD 12/21/19 [id number] Angie Batres MD /nt
== END ==
LOC: PAIN 06:50
DX: M79.18 Myalgia, other site (principal); M54.16 Radiculopathy, lumbar region; Z79.891 Long term (current) use of opiate analgesic

== ENCOUNTER → 2020-04-25 | Outpatient (CLI) | payer OTHER ==
[~2020-04-25] VITALS: Ht 180.3 cm; Wt 122.7 kg
[~2020-04-25] MED LIST changes: +VOLTAREN GEL 1100 GM TOP
[2020-04-25 09:10] VITALS: BP 176/76
--- NOTE | 2020-04-25 09:28 | NUR ---
Pain Clinic Assessment: 1. History of Osteoarthritis: B/L KNEE'S History of Rheumatoid Arthritis: DENIES 2. Height: 5 ft. 11 in. 180.3 cm. Weight: 270.4 lb. oz. 122.653 kg. Patient's BMI: 37.7 3. Vital Signs: BP: 176/76 Pulse: 50 Resp: 18 Temp: 02 Sat: 100 ECG Mon: 4. Pain Intensity: 3-4 5. Fall Risk: Dizziness: N Needs help standing or walking: N Fallen in the last 3 months: N Fall risk comments: 6. Patient on Blood Thinner: Warfarin (Coumadin) 7. History of Hypertension: Y 8. Opioid Therapy greater than 6 weeks: Y Opiate Contract Signed: 03/09/17 9. Risk Assessment Tool Provided: 6-MOD RISK 10. Functional Assessment Tool: 11. Recreational Drug Use: Never Drug Type: Tobacco Use: Never Smoker Tobacco Type: Amount or Packs/day: How Many Years: Alcohol Use: Past use Frequency: Quant:
--- NOTE | 2020-04-26 08:52 | HPC ---
[facility] [place] [address] [address] PAIN MANAGEMENT CONSULTATION Name: CINTHYA SORENSON Room #: REG [facility]#: [id number] Admission: 04/25/20 Attend Phys: Tatiana Woodward Discharge: Date of : 39 Report #: [id number] THIS REPORT FOR: cc: Leo Vinson MD, Neal A. MD Hocker, Amanda CNS ~ CC: Akash Batres MD DATE OF SERVICE: 04/25/2020 CHIEF COMPLAINT: Lower back pain. HISTORY OF PRESENT ILLNESS: This is a very pleasant 79-year-old gentleman who returns to the pain clinic today for a refill of his opioid medications that he uses to help treat his ongoing low back pain. He does occasionally have right thigh pain. Today, he is reporting an aching, sharp discomfort that he rates at 3-4 level out of 10. He reports that his pain is worse with prolonged walking and bending, but he feels the medication regimen is very beneficial, taking an average of 2-3 pills a day. His last visit was in November, so he has been able to go slightly longer on his 3-month supply of medications. The patient reports that his constipation is managed with Colace. He denies any daytime somnolence as a result of his medications. He also finds the Voltaren gel very beneficial and would like refills of that medication as well. He reports he has been staying safe during the COVID outbreak and at home most of the time or if he is out he does wear a mask at all times. ALLERGIES: No known drug allergies. CURRENT LIST OF MEDICATIONS: Hydrocodone 5/325 p.r.n., diclofenac gel, Tylenol Arthritis, warfarin 5 mg, fish oil, vitamin B12, vitamin D, multivitamin, losartan/hydrochlorothiazide, Cardura, allopurinol, Prilosec, Zocor, atenolol, and Glucophage. PQRS: 1. He has a history of osteoarthritis in his knees bilaterally. He is not being treated for rheumatoid arthritis. 2. Height is 5 feet 11 inches, weight is 270, BMI is 37. 3. Vital signs 170/76, retaken 160/72, pulse is 50, respirations 18, oxygen sat is 100. 4. Pain score is 3-4. 5. Denies dizziness, does not need help walking or standing, has not fallen in the last 3 months. The patient is on warfarin as well as medicines for hypertension. 6. Opioid therapy is greater than 6 weeks; therefore, an opioid signed contract is on the chart. Risk assessment is moderate. Functional assessment is 41/70. [place] [address] PAIN MANAGEMENT CONSULTATION Name: YASCINTHYA A Room #: REG CL Mi#: [id number] Admission: 04/25/20 Attend Phys: Tatiana Woodward Discharge: Date of : 39 Report #: [id number] 8. Recreational drug use, he denies. He is not a smoker and has used alcohol in the past. According to the prescription monitoring system, the patient is filling appropriately for his medications, filling them in a timely fashion, but slightly longer than 30 days. His morphine mEq according to the CDC guidelines is 15 MME's. PHYSICAL EXAMINATION: GENERAL: This is a well-developed, well-nourished white gentleman who appears his stated age of [age] years old. He is alert and orientated, answering questions appropriately, rating his pain score today at 3-4. HEENT: Normocephalic, atraumatic. Extraocular eye muscles are intact. He is wearing glasses and a mask today. NECK: Without adenopathy or JVD. MUSCULOSKELETAL: Upper extremity strength judged to be 5/5 in all major muscle groups. Lower extremity strength judged to be 5/5 with good sensation from L1-S2, complaints of pain, discomfort in his lower sacral region of his lumbar spine. Pain radiates into his right thigh. IMPRESSION: 1. Myofascial pain. 2. Lumbar radicular pain. 3. History of axial back pain. 4. Complicated medical management using opioids. We reviewed the fact that opiate medications are being used to provide analgesia adequate to support activities of daily living, not attempting to achieve a specific pain score on the 0-10 Visual Analog Scale. The current opiate medications are providing sufficient analgesia to allow the patient to participate in activities of daily living. The patient is not exhibiting any aberrant behavior suggestive of drug diversion. The patient is not having any adverse reactions to medications. The patient is not suffering from daytime somnolence or mental acuity changes. The patient is managing opiate-induced constipation with appropriate gyis-kez-sefjwst agents and dietary considerations. The patient was counseled on concern for caution with operating a motor vehicle while using opiate medications. PLAN: 1. We discussed treatment options with the patient today. The patient finds his medication very beneficial. We will continue him on hydrocodone 5/325 three times a day, #90, script sent electronically by Dr. Francisco Batres for 3 months. This does usually last the patient slightly longer. He will call for an appointment when he is running low on his medications. 2. The patient continues to have his constipation managed with Colace and diet. 3. He finds the diclofenac gel very beneficial in helping with some of his [facility] [address] [place] [address] PAIN MANAGEMENT CONSULTATION Name: CINTHYA SORENSON Room #: [facility] SusanVeronica#: [id number] Admission: 04/25/20 Attend Phys: Tatiana Woodward Discharge: Date of : 39 Report #: [id number] osteoarthritis issues. We will send refills of that medication as well electronically 3 tubes with 2 additional refills to his pharmacy. 4. The patient is seen in collaboration with Dr. Francisco Batres. <ELECTRONICALLY SIGNED> By: Tatiana Woodward 04/26/20 [id number] Tatiana Woodward /nt
== END ==
LOC: PAIN 06:54
DX: M54.16 Radiculopathy, lumbar region (principal); F11.90 Opioid use, unspecified, uncomplicated; Z79.899 Other long term (current) drug therapy

== ENCOUNTER → 2020-07-25 | Outpatient (CLI) | payer OTHER ==
[~2020-07-25] VITALS: Ht 180.3 cm; Wt 121.7 kg
[~2020-07-25] MED LIST changes: +FISH OIL 1,001000 M2 PO; +NORCO 5-325 TA1 EAC2 PO; +TUMS200 MG PO; +UNICOMPLEX M TA1 TA1 PO; +VITAMIN D310 MC2 PO
[2020-07-25 12:24] VITALS: BP 158/64
--- NOTE | 2020-07-25 12:31 | NUR ---
Pain Clinic Assessment: 1. History of Osteoarthritis: B/L KNEE'S History of Rheumatoid Arthritis: DENIES 2. Height: 5 ft. 11 in. 180.3 cm. Weight: 268.4 lb. oz. 121.746 kg. Patient's BMI: 37.5 3. Vital Signs: BP: 158/64 Pulse: 43 Resp: 16 Temp: 02 Sat: 99 ECG Mon: 4. Pain Intensity: 3-4 5. Fall Risk: Dizziness: N Needs help standing or walking: N Fallen in the last 3 months: N Fall risk comments: 6. Patient on Blood Thinner: Warfarin (Coumadin) 7. History of Hypertension: Y 8. Opioid Therapy greater than 6 weeks: Y Opiate Contract Signed: 03/09/17 9. Risk Assessment Tool Provided: 6-MOD RISK 10. Functional Assessment Tool: 11. Recreational Drug Use: Never Drug Type: Tobacco Use: Never Smoker Tobacco Type: Amount or Packs/day: How Many Years: Alcohol Use: Past use Frequency: Quant:
--- NOTE | 2020-08-01 07:37 | HPC ---
[facility] [address] [address] PAIN MANAGEMENT CONSULTATION Name: CINTHYA SORENSON Room #: REG [facility] Mi#: [id number] Admission: 07/25/20 Attend Phys: Tatiana Woodward Discharge: Date of : 39 Report #: [id number] THIS REPORT FOR: cc: Leo Vinson MD, Neal A. MD Hocker, Amanda CNS ~ CC: Akash Batres MD DATE OF SERVICE: 07/25/2020 CHIEF COMPLAINT: Low back pain. HISTORY OF PRESENT ILLNESS: This is a very pleasant 79-year-old gentleman who returns to the pain clinic today for refill of his opioid medications. Today, he is reporting his pain score at 3-4. He feels that it is very well controlled on his current regimen, stating he is stiff and sore at times, but does use Voltaren gel on several joints as well. He reports an aching pain, worse with walking and bending over. He feels though that the medication as well as sitting has been beneficial. He denies any daytime somnolence or constipation as a result of these medicines. The patient reports that he has been staying safe at home during this COVID outbreak. 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 He is hopeful that he will get to work some this school year. He reports that after 1 more year he feels like he will retire from teaching. ALLERGIES: No known drug allergies. CURRENT LIST OF MEDICATIONS: Fish oil, vitamin D, multivitamin, calcium, hydrocodone 5/325 p.r.n., diclofenac gel, Tylenol, warfarin, fish oil, vitamin B12, vitamin D, losartan/hydrochlorothiazide, Cardura, allopurinol, Prilosec, Zocor, atenolol, and, Glucophage. PQRS: 1. He has osteoarthritis in his bilateral knees. Denies any rheumatoid arthritis. 2. Height is 5 feet 11 inches, weight is 268, BMI is 37. 3. Vital Signs: 158/64, pulse is 43, respirations 16, oxygen sat is 99. 4. Pain score is 3-4. 5. Denies dizziness, does not need help walking or standing, has not fallen in the last 3 months. 6. The patient remains on Coumadin as well as medicine for hypertension. 7. Opioid therapy is greater than 6 weeks; therefore, [place] [address] PAIN MANAGEMENT CONSULTATION Name: CINTHYA SORENSON Room #: REG [facility] Mi#: [id number] Admission: 07/25/20 Attend Phys: Tatiana Woodward Discharge: Date of : 39 Report #: [id number] is on the chart. Risk assessment is moderate. Functional assessment is 41/70. 8. Recreational drug use, he denies. He is not a smoker and does not drink alcohol. According to the prescription monitoring system, the patient is filling appropriately for his medications in a timely fashion. He is due to fill these medications today. According to the CDC guidelines, his morphine mEq is 15 MME per day. PHYSICAL EXAMINATION: GENERAL: This is a well-developed, well-nourished, slightly obese 79-year-old gentleman who appears his stated age, placing his current pain score today at 3-4. He is a good historian. HEENT: Normocephalic, atraumatic. Extraocular eye muscles are intact. He is wearing glasses and a mask today. NECK: Without adenopathy or JVD. MUSCULOSKELETAL: His upper and lower extremity strength is judged to be symmetrical strength with good sensation from L1-S2. He has discomfort in the lower segment of his lumbar spine in his sacral area that does radiate into his upper thighs. IMPRESSION: 1. Lumbar radiculopathy pain. 2. History of axial back pain. 3. Complex medical management utilizing opioid medications. 4. Osteoarthritis. We reviewed the fact that opiate medications are being used to provide analgesia adequate to support activities of daily living, not attempting to achieve a specific pain score on the 0-10 Visual Analog Scale. The current opiate medications are providing sufficient analgesia to allow the patient to participate in activities of daily living. The patient is not exhibiting any aberrant behavior suggestive of drug diversion. The patient is not having any adverse reactions to medications. The patient is not suffering from daytime somnolence or mental acuity changes. The patient is managing opiate-induced constipation with appropriate bdlm-ill-cndshne agents and dietary considerations. The patient was counseled on concern for caution with operating a motor vehicle while using opiate medications. PLAN: 1. We discussed treatment options with the patient today. He feels that the hydrocodone and Voltaren gel are very beneficial allowing him to be as active as he would like. 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 Today, we will refill his hydrocodone 5/325, #90. These will be sent for [address] Francisco Batres. [address] [address] PAIN MANAGEMENT CONSULTATION Name: CINTHYA SORENSON Room #: REG [facility]#: [id number] Admission: 07/25/20 Attend Phys: Tatiana Woodward Discharge: Date of : 39 Report #: [id number] 2. I will send his Voltaren gel. The patient uses this on several osteoarthritic joints. I will sent 3 tubes with 2 additional refills. We did discuss that it has gone [id number]-hff-[id number]. If he finds that is cheaper than his prescription, he may fill cfwv-mlm-gjrloth medications. I explained that it is the same prescription strength. 3. The patient will return in 3 months as needed. The patient is seen today in collaboration with Dr. Francisco Batres. <ELECTRONICALLY SIGNED> By: Tatiana Woodward 08/01/20 0737 [id number] Tatiana Woodward /lana
== END ==
LOC: PAIN 06:56
PROVIDERS: ATTEND Clinical Nurse Specialist Adult Health
DX: M54.12 Radiculopathy, cervical region (principal); F11.20 Opioid dependence, uncomplicated; M19.90 Unspecified osteoarthritis, unspecified site; Z79.899 Other long term (current) drug therapy

== ENCOUNTER 2020-08-06 10:06 | Emergency (ER) | payer OTHER ==
[~2020-08-06] VITALS: Ht 182.9 cm; Wt 119.3 kg
[2020-08-06 10:34] LABS: URINE BILIRUBIN NEGATIVE (Negative); URINE BLOOD NEGATIVE (Negative); URINE CLARITY CLEAR; URINE COLOR YELLOW; URINE GLUCOSE-RANDOM* NEGATIVE (Negative); URINE KETONES NEGATIVE (Negative); URINE PROTEIN (DIPSTICK) NEGATIVE (Negative); URINE UROBILINOGEN 0.2 E.U./dl (0.2-1.0)
[2020-08-06 10:35] LABS: URINE LEUKOCYTES-REFLEX 1+ (Negative); URINE NITRITE-REFLEX POSITIVE (Negative)
[2020-08-06 10:46] LABS: ABSOLUTE NEUTROPHILS 2.6 thou/uL (1.4-8.2); BASOPHILS 0.8 % (0.0-2.0); EOSINOPHILS 0.9 % (0.0-3.0); HEMATOCRIT 37.6 % (42.0-52.0); HEMOGLOBIN 12.6 gm/dL (14.0-18.0); LYMPHOCYTES 20.1 % (24.0-44.0); MCH 35.9 pg (26.0-34.0); MCHC 33.6 g/dL (28.0-37.0); MONOCYTES 10.5 % (1.0-8.0); POLYS 67.7 % (36.0-66.0); RBC 3.51 mil/uL (4.50-6.00); RDW 13.8 % (10.5-14.5); WBC 3.8 thou/uL (4.0-11.0)
[2020-08-06 10:53] LABS: CASTS None Seen /LPF (None Seen); SQUAMOUS 0-3 Few /LPF (0-3); URINE RBC None Seen /HPF (0-2); URINE WBC-REFLEX 0-5 Rare /HPF (0-5)
[2020-08-06 10:54] LABS: BACTERIA-REFLEX >30 Many /HPF (None Seen); CRYSTALS None Seen /LPF (None Seen)
[2020-08-06 10:57] LABS: INR 1.6; POTASSIUM 4.4 mmol/L (3.5-5.1); PROTIME 16.8 Seconds (9.3-11.4)
[2020-08-06 11:03] LABS: TOTAL BILIRUBIN 1.7 mg/dL (0.2-1.0); TOTAL PROTEIN 7.4 g/dL (6.4-8.2)
[2020-08-06 12:07] LABS: PLATELET COUNT 77 thou/uL (150-400)
[2020-08-06 12:08] LABS: ANISOCYTOSIS 1+
[2020-08-06 12:09] LABS: MACROCYTES 2+
[2020-08-06 13:11] VITALS: BP 182/78
== END 2020-08-06 13:11 | disposition home or self-care (01) ==
LOC: ER 10:06
PROVIDERS: Emergency Medicine
DX: S22.069A Unspecified fracture of T7-T8 vertebra, initial encounter for closed fracture (principal); R10.11 Right upper quadrant pain; R10.13 Epigastric pain; M19.90 Unspecified osteoarthritis, unspecified site; I10 Essential (primary) hypertension; E11.9 Type 2 diabetes mellitus without complications; E78.00 Pure hypercholesterolemia, unspecified; I48.91 Unspecified atrial fibrillation; F17.210 Nicotine dependence, cigarettes, uncomplicated; Z90.49 Acquired absence of other specified parts of digestive tract; Z79.899 Other long term (current) drug therapy; Z79.01 Long term (current) use of anticoagulants; W19.XXXA Unspecified fall, initial encounter; Y93.01 Activity, walking, marching and hiking; Y92.69 Other specified industrial and construction area as the place of occurrence of the external cause; Y99.8 Other external cause status

== ENCOUNTER → 2020-10-24 | Outpatient (CLI) | payer OTHER ==
[~2020-10-24] VITALS: Ht 180.3 cm; Wt 121.4 kg
[2020-10-24 10:28] VITALS: BP 156/78
--- NOTE | 2020-10-24 10:52 | NUR ---
Pain Clinic Assessment: 1. History of Osteoarthritis: B/L KNEE'S History of Rheumatoid Arthritis: DENIES 2. Height: 5 ft. 11 in. 180.3 cm. Weight: 267.6 lb. oz. 121.383 kg. Patient's BMI: 37.3 3. Vital Signs: BP: 156/78 Pulse: 64 Resp: 16 Temp: 02 Sat: 97 ECG Mon: 4. Pain Intensity: 7 5. Fall Risk: Dizziness: N Needs help standing or walking: N Fallen in the last 3 months: Y Fall risk comments: 6. Patient on Blood Thinner: Warfarin (Coumadin) 7. History of Hypertension: Y 8. Opioid Therapy greater than 6 weeks: Y Opiate Contract Signed: 03/09/17 9. Risk Assessment Tool Provided: 6-MOD RISK 10. Functional Assessment Tool: 11. Recreational Drug Use: Never Drug Type: Tobacco Use: Never Smoker Tobacco Type: Amount or Packs/day: How Many Years: Alcohol Use: Past use Frequency: Quant:
--- NOTE | 2020-10-24 15:02 | HPC ---
[facility] [address] [address] PAIN MANAGEMENT CONSULTATION Name: CINTHYA SORENSON [id number] Admission: 10/24/20 Attend Phys: Tatiana Woodward Discharge: Date of : 39 Report #: [id number] THIS REPORT FOR: cc: Leo Vinson MD, Neal A. MD Hocker, Amanda CNS ~ CC: Tatiana Batres MD DATE OF SERVICE: 10/24/2020 CHIEF COMPLAINT: Low back pain. HISTORY OF PRESENT ILLNESS: This is a very pleasant 80-year-old gentleman who returns today for refill of his medication. He believes that his current regimen is working quite well, enabling him to be as active as he would like. 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 The patient does report the last day he worked, he did have a fall and required a visit to the hospital. He had no broken bones. They did find an old compression fracture. He believes this was a result of a fall a year ago. The patient does not use any assistive devices for ambulation, though at times he does feel slightly unsteady on his gait and knows to get up slowly. He does report he had had an arm full of homework and walked out of the doorway and became off balance and that is why he fell. He believes if he had his arms empty, he would not have fallen. The patient does report a pain score today of 7. He feels it is slightly higher due to weather changes today. Overall, it is in his low back that radiates into his right thigh and it is an aching, sharp pain. He denies significant issues with constipation. He does take some fzyf-vpg-hoapent medication. He utilizes the Voltaren gel several times a day and finds that is beneficial as his hydrocodone. ALLERGIES: No known drug allergies. CURRENT LIST OF MEDICATIONS: Hydrocodone 5/325 t.i.d., diclofenac gel, fish oil, vitamin D, calcium, multivitamin, warfarin 6 mg daily, fish oil, vitamin B12, valsartan, Cardura, amlodipine, Prilosec, Zocor, atenolol, and metformin. PQRS: 1. 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 Denies any rheumatoid arthritis. 2. Height is 5 feet 11 inches, weight is 267, BMI is 37. 3. Vital signs, 156/78, pulse is 64, respirations 16, oxygen sat is 97%. 4. The patient's pain score is 7/10. [address] [address] PAIN MANAGEMENT CONSULTATION Name: CINTHYA SORENSON Room #: REG [facility] [id number] Admission: 10/24/20 Attend Phys: Tatiana Woodward Discharge: Date of : 39 Report #: [id number] 5. Denies dizziness. Does not need assistance for walking, has fallen in the last 3 months. 6. The patient is on warfarin as well as medicines for hypertension. 7. His opioid therapy is greater than 6 weeks; therefore, an opioid signed contract is on the chart. Risk assessment is moderate. Functional assessment is 55/70. 8. Recreational drug use, he denies. He is not a smoker and does not drink alcohol. According to the prescription monitoring system, the patient is filling his meds appropriately. He is due to fill his meds today. His morphine mEq is 15 MME. We will check a random drug screen on him today. PHYSICAL EXAMINATION: GENERAL: This is an alert and orientated, well-developed, well-nourished 80-year-old gentleman who appears stated age, placing his current pain score at 7/10. HEENT: Normocephalic, atraumatic. Extraocular eye muscles are intact. He is wearing a mask. NECK: Without adenopathy or JVD. MUSCULOSKELETAL: He has tenderness in his thoracic and lumbar spine as well as multiple arthritic joints. His lower extremity strength is symmetrical at 5/5 with good sensation from L1-S2. IMPRESSION: 1. Lumbar radiculopathy. 2. History of axial back pain. 3. Osteoarthritis. 4. Medical management utilizing opioid medications. 5. Atrial fibrillation, on anticoagulation therapy. We reviewed the fact that opiate medications are being used to provide analgesia adequate to support activities of daily living, not attempting to achieve a specific pain score on the 0-10 Visual Analog Scale. The current opiate medications are providing sufficient analgesia to allow the patient to participate in activities of daily living. The patient is not exhibiting any aberrant behavior suggestive of drug diversion. The patient is not having any adverse reactions to medications. The patient is not suffering from daytime somnolence or mental acuity changes. The patient is managing opiate-induced constipation with appropriate dbgz-gms-rvxyhov agents and dietary considerations. The patient was counseled on concern for caution with operating a motor vehicle while using opiate medications. A physical exam was performed and the patient's functional status was evaluated. All patients with back pain were advised against the bed rest greater than 4 days and were advised to return to normal activities. Pain score assessment was [address] [address] PAIN MANAGEMENT CONSULTATION Name: CINTHYA SORENSON Room #: REG [facility]#: [id number] Admission: 10/24/20 Attend Phys: Tatiana EMMA Trace Discharge: Date of : 39 Report #: [id number] noted and the treatment plan was reviewed with the patient. All current medications, both prescribed and OTC were reviewed and reconciled on the electronic medical record. Tobacco screening was accomplished and smoking cessation was advised when indicated. BMI was noted and diet/exercise modification was recommended for all patients following outside normal parameters. I reviewed with the patient today their responsibilities to safeguard prescription medications, reviewed their responsibility to utilize medications only as prescribed by the physician. They are to seek and receive pain medications only from 1 physician group ( [facility]). They are to use 1 pharmacy and keep the clinic informed if they change pharmacies. Their responsibilities include making followup visits in a timely fashion and to avoid abrupt discontinuation of medication usage. Their responsibilities further include bringing their medications (bottles from the pharmacy with residual pills) to the visit for possible confirmation of pill counts and the patient understands it is their responsibility to submit to random drug screens to ensure both that the medications prescribed are present, and that no other controlled substances are present. All prescriptions provided today were generated electronically. PLAN: 1. We discussed treatment options with the patient today. Overall, the patient feels hydrocodone and Voltaren gel are very beneficial in controlling his pain, despite his level being higher today than normal. The patient would like to continue on this medication. We will send them electronically for 3 months. 2. 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 He believes if his hands were free, he would not have fallen. He would have been able to catch himself on the wall. He did require an Emergency Room visit, but no broken bones. He feels like he is fully recovered and has followed up with his primary care doctor. 3. We did discuss the COVID virus. 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 The patient feels that when the vaccine is available that he would like to have the injection. The patient reports being home safe throughout this time and does wear a mask when he is out at the grocery store. 4. The patient is seen today in collaboration with Dr. Batres. <ELECTRONICALLY SIGNED> By: Tatiana Woodward 10/24/20 1502 [id number] Tatiana Woodward /nt
== END ==
LOC: PAIN 06:43
PROVIDERS: ATTEND Clinical Nurse Specialist Adult Health
DX: M54.16 Radiculopathy, lumbar region (principal); I48.91 Unspecified atrial fibrillation; M19.90 Unspecified osteoarthritis, unspecified site; Z79.01 Long term (current) use of anticoagulants; Z79.899 Other long term (current) drug therapy

== ENCOUNTER → 2021-01-23 | Outpatient (CLI) | payer OTHER ==
[~2021-01-23] VITALS: Ht 180.3 cm; Wt 121.5 kg
[~2021-01-23] MED LIST changes: +NORCO5 PO
[2021-01-23 10:28] VITALS: BP 135/73
--- NOTE | 2021-01-23 10:52 | NUR ---
Pain Clinic Assessment: 1. History of Osteoarthritis: B/L KNEE'S History of Rheumatoid Arthritis: DENIES 2. Height: 5 ft. 11 in. 180.3 cm. Weight: 267.8 lb. oz. 121.474 kg. Patient's BMI: 37.4 3. Vital Signs: BP: 135/73 Pulse: 63 Resp: 20 Temp: 02 Sat: 98 ECG Mon: 4. Pain Intensity: 4 5. Fall Risk: Dizziness: N Needs help standing or walking: N Fallen in the last 3 months: N Fall risk comments: 6. Patient on Blood Thinner: Warfarin (Coumadin) 7. History of Hypertension: Y 8. Opioid Therapy greater than 6 weeks: Y Opiate Contract Signed: 03/09/17 9. Risk Assessment Tool Provided: 6-MOD RISK 10. Functional Assessment Tool: 11. Recreational Drug Use: Never Drug Type: Tobacco Use: Never Smoker Tobacco Type: Amount or Packs/day: How Many Years: Alcohol Use: Past use Frequency: Quant:
--- NOTE | 2021-01-24 07:44 | HPC ---
[facility] [address] [address] PAIN MANAGEMENT CONSULTATION Name: CINTHYA SORENSON [facility] [id number] Admission: 01/23/21 Attend Phys: Tatiana Woodward Discharge: Date of : 39 Report #: [id number] THIS REPORT FOR: cc: Leo Vinson MD, Neal A. MD Hocker, Amanda CNS ~ DATE OF SERVICE: 01/23/2021 CHIEF COMPLAINT: Low back pain, neck pain and left knee pain. HISTORY OF PRESENT ILLNESS: This is an 80-year-old gentleman who returns to the pain clinic today for renewal of his medications and to discuss some new pain that he is experiencing. Today, the patient is reporting pain in his cervical spine. It does not radiate into his arms. It is centrally located. It is tender to the touch. It has been problematic for about a week per his report. His second new pain generator is in his right lower back, stating that it is worse when he is bending and twisting. Again, this pain has been problematic for the last several weeks. His third new pain area is in his left knee on the lateral aspect. He has been utilizing Voltaren gel once a day on this area. He is unsure why that has been problematic, though he has had arthritic issues in his knees for years. He does continue to have ongoing low back pain above his belt line in his lumbosacral region that we typically provide him with hydrocodone for. He is reporting his pain score a 4/10 today, again worse with walking and bending. Overall, he does feel that the medication and sitting has been beneficial. He is wondering about a possible steroid injection in his most problematic area, which is in his lower right back. The patient does report that he did recently receive his second COVID vaccine last week. ALLERGIES: No known drug allergies. CURRENT LIST OF MEDICATIONS: Calcium, Tylenol, warfarin, hydrocodone 5/325, Voltaren gel, fish oil, vitamin D, multivitamin, valsartan, hydrochlorothiazide, Cardura, allopurinol, omeprazole, Zocor, atenolol, and Glucophage. PATIENT'S PQRS: 1. He has arthritic changes in his knees and lumbar spine. Denies any rheumatoid arthritis. 2. Height is 5 feet 11 inches, weight is 267, BMI is 37. 3. Vital signs 135/73, pulse is 63, respirations 20, oxygen sat is 98%. 4. Pain score is 4/10. 5. Denies dizziness, does not need assistance with ambulation. Has not fallen in the last 3 months. 6. The patient is on Coumadin as well as medication for high blood pressure. [address] [address] PAIN MANAGEMENT CONSULTATION Name: CINTHYA SORENSON Room #: REG [facility] [id number] Admission: 01/23/21 Attend Phys: Tatiana Woodward Discharge: Date of : 39 Report #: [id number] 7. Opioid therapy is greater than 6 weeks; therefore, an opioid signed contract is on the chart. Risk assessment is moderate. Functional assessment is 55/70. 8. Recreational drug use, he denies. He is not a smoker and occasionally drinks alcohol. According to the prescription monitoring system, the patient is filling appropriately in a timely fashion. His morphine milliequivalent is 14-15 MMEs per day. PHYSICAL EXAMINATION: GENERAL: This is alert and orientated, well-developed, well-nourished, slightly obese 80-year-old gentleman who appears his stated age, rating his pain score today at 4/10. He is a good historian. HEENT: Normocephalic, atraumatic. Extraocular eye muscles are intact. He is wearing a mask. NECK: Without adenopathy or JVD. He has tenderness right at the base of his neck, but no radicular symptoms noted. MUSCULOSKELETAL: Tenderness in his lumbosacral region at his belt line that radiates into his hips and buttocks bilaterally. He has point tenderness in his latissimus dorsi and thoracic lumbar fascia muscles. On the right back, no radicular symptoms noted. Tenderness in his left knee on the lateral aspect, no edema appreciated today. Lower extremity strength is symmetrical at 5/5. IMPRESSION: 1. Lumbar radiculopathy. 2. History of axial back pain. 3. Myofascial pain of his lumbar region. 4. Osteoarthritis. 5. Neck pain. 6. Atrial fibrillation, on anticoagulation therapy. 7. Management of opioids utilizing opioid medications. We reviewed the fact that opiate medications are being used to provide analgesia adequate to support activities of daily living, not attempting to achieve a specific pain score on the 0-10 Visual Analog Scale. The current opiate medications are providing sufficient analgesia to allow the patient to participate in activities of daily living. The patient is not exhibiting any aberrant behavior suggestive of drug diversion. The patient is not having any adverse reactions to medications. The patient is not suffering from daytime somnolence or mental acuity changes. The patient is managing opiate-induced constipation with appropriate sdgh-sbs-crdztwq agents and dietary considerations. The patient was counseled on concern for caution with operating a motor vehicle while using opiate medications. A physical exam was performed and the patient's functional status was evaluated. All patients with back pain were advised against the bed rest greater than 4 [facility] [address] [place] [address] PAIN MANAGEMENT CONSULTATION Name: CINTHYA SORENSON [facility] [id number] Admission: 01/23/21 Attend Phys: Tatiana Woodward Discharge: Date of : 39 Report #: [id number] days and were advised to return to normal activities. Pain score assessment was noted and the treatment plan was reviewed with the patient. All current medications, both prescribed and OTC were reviewed and reconciled on the electronic medical record. Tobacco screening was accomplished and smoking cessation was advised when indicated. BMI was noted and diet/exercise modification was recommended for all patients following outside normal parameters. I reviewed with the patient today their responsibilities to safeguard prescription medications, reviewed their responsibility to utilize medications only as prescribed by the physician. They are to seek and receive pain medications only from 1 physician group ( [facility]). They are to use 1 pharmacy and keep the clinic informed if they change pharmacies. Their responsibilities include making followup visits in a timely fashion and to avoid abrupt discontinuation of medication usage. Their responsibilities further include bringing their medications (bottles from the pharmacy with residual pills) to the visit for possible confirmation of pill counts and the patient understands it is their responsibility to submit to random drug screens to ensure both that the medications prescribed are present, and that no other controlled substances are present. All prescriptions provided today were generated electronically. PLAN: 1. We discussed treatment options with the patient today. The patient has several new pain generators. The most problematic is in his lower right back. We did discuss a possible trigger point injection. He is on Coumadin. Per Dr. Batres's request, he would like him off for 3 full days prior to injecting. He does not require an INR to inject in this muscle. The patient will call for an appointment in the next few weeks when he is ready to schedule this appointment. 2. The patient encouraged to utilize his Voltaren gel on his knee 3-4 times a day prior to his next appointment to see if this is beneficial in decreasing some of this osteoarthritic changes and pain in his knee. Scripts sent for his Voltaren gel that he does use on various joints periodically. 3. Hydrocodone 5/325, #90, will be sent by Dr. Batres who collaborated care today for 01/21/2021, 02/20/2021 and 03/18/2021 release. Time spent prior to seeing the patient, reviewing the chart for any pertinent medical documentation and then time spent in consultation and physical exam with the patient 13 min, then time spent reviewing medical prescription monitoring system and various medications as well as sending medications electronically and documentation total of 28 minutes spent. <ELECTRONICALLY SIGNED> By: Tatiana Woodward 01/24/21 0744 [id number] 1304 Tatiana Woodward /nt
== END ==
LOC: PAIN 06:43
PROVIDERS: ATTEND Clinical Nurse Specialist Adult Health
DX: M54.16 Radiculopathy, lumbar region (principal); M25.562 Pain in left knee; M79.10 Myalgia, unspecified site; M19.90 Unspecified osteoarthritis, unspecified site; I48.91 Unspecified atrial fibrillation; F11.20 Opioid dependence, uncomplicated; Z88.8 Allergy status to other drugs, medicaments and biological substances; Z79.01 Long term (current) use of anticoagulants; Z79.899 Other long term (current) drug therapy

== ENCOUNTER → 2021-02-13 | Outpatient (CLI) | payer OTHER ==
[~2021-02-13] VITALS: Ht 180.3 cm; Wt 118.8 kg
[2021-02-13 10:27] VITALS: BP 128/66
--- NOTE | 2021-02-13 11:00 | NUR ---
Pain Clinic Assessment: 1. History of Osteoarthritis: B/L KNEE'S History of Rheumatoid Arthritis: DENIES 2. Height: 5 ft. 11 in. 180.3 cm. Weight: 262.0 lb. oz. 118.843 kg. Patient's BMI: 36.6 3. Vital Signs: BP: 128/66 Pulse: 62 Resp: 16 Temp: 02 Sat: 98 ECG Mon: 4. Pain Intensity: 6-8 5. Fall Risk: Dizziness: N Needs help standing or walking: N Fallen in the last 3 months: N Fall risk comments: 6. Patient on Blood Thinner: Warfarin (Coumadin) 7. History of Hypertension: Y 8. Opioid Therapy greater than 6 weeks: Y Opiate Contract Signed: 03/09/17 9. Risk Assessment Tool Provided: 6-MOD RISK 10. Functional Assessment Tool: 11. Recreational Drug Use: Never Drug Type: Tobacco Use: Never Smoker Tobacco Type: Amount or Packs/day: How Many Years: Alcohol Use: Past use Frequency: Quant:
== END | disposition home or self-care (01) ==
LOC: PAIN 06:53
PROVIDERS: ATTEND Anesthesiology Pain Medicine
DX: M25.562 Pain in left knee (principal); M54.16 Radiculopathy, lumbar region; I48.91 Unspecified atrial fibrillation; I10 Essential (primary) hypertension; E11.9 Type 2 diabetes mellitus without complications; H40.9 Unspecified glaucoma; M19.90 Unspecified osteoarthritis, unspecified site; Z98.890 Other specified postprocedural states; Z79.899 Other long term (current) drug therapy; Z79.891 Long term (current) use of opiate analgesic; Z79.01 Long term (current) use of anticoagulants; Z90.49 Acquired absence of other specified parts of digestive tract

== ENCOUNTER → 2021-04-24 | Outpatient (CLI) | payer OTHER ==
[~2021-04-24] VITALS: Ht 180.3 cm; Wt 115.9 kg
[~2021-04-24] MED LIST changes: +ALLOPURINOL 30300 M1 PO; +ATENOLOL 25 MG25 M1 PO; +JANTOVEN6 MG PO; +WARFARIN SODIUM6 MG PO
[2021-04-24 09:56] VITALS: BP 175/69
--- NOTE | 2021-04-24 10:05 | NUR ---
Pain Clinic Assessment: 1. History of Osteoarthritis: B/L KNEE'S History of Rheumatoid Arthritis: DENIES 2. Height: 5 ft. 11 in. 180.3 cm. Weight: 255.6 lb. oz. 115.940 kg. Patient's BMI: 35.7 3. Vital Signs: BP: 175/69 Pulse: 46 Resp: 16 Temp: 02 Sat: 98 ECG Mon: 4. Pain Intensity: 4 5. Fall Risk: Dizziness: N Needs help standing or walking: N Fallen in the last 3 months: N Fall risk comments: 6. Patient on Blood Thinner: Warfarin (Coumadin) 7. History of Hypertension: Y 8. Opioid Therapy greater than 6 weeks: Y Opiate Contract Signed: 03/09/17 9. Risk Assessment Tool Provided: 6-MOD RISK 10. Functional Assessment Tool: 11. Recreational Drug Use: Never Drug Type: Tobacco Use: Never Smoker Tobacco Type: Amount or Packs/day: How Many Years: Alcohol Use: Past use Frequency: Quant:
== END ==
LOC: PAIN 07:01
PROVIDERS: ATTEND Clinical Nurse Specialist Adult Health
DX: M54.16 Radiculopathy, lumbar region (principal); M19.90 Unspecified osteoarthritis, unspecified site; I48.91 Unspecified atrial fibrillation; M54.5 Low back pain; M54.2 Cervicalgia; M25.562 Pain in left knee; Z79.899 Other long term (current) drug therapy; Z79.01 Long term (current) use of anticoagulants; Z79.891 Long term (current) use of opiate analgesic

== ENCOUNTER → 2021-05-17 | Outpatient (CLI) | payer OTHER ==
[~2021-05-17] VITALS: Ht 180.3 cm; Wt 112.9 kg
[2021-05-17 10:06] VITALS: BP 154/57
--- NOTE | 2021-05-17 10:38 | NUR ---
Pain Clinic Assessment: 1. History of Osteoarthritis: B/L KNEE'S History of Rheumatoid Arthritis: DENIES 2. Height: 5 ft. 11 in. 180.3 cm. Weight: 248.8 lb. oz. 112.855 kg. Patient's BMI: 34.7 3. Vital Signs: BP: 154/57 Pulse: 50 Resp: 18 Temp: 02 Sat: 100 ECG Mon: 4. Pain Intensity: 6 5. Fall Risk: Dizziness: N Needs help standing or walking: N Fallen in the last 3 months: Y Fall risk comments: 6. Patient on Blood Thinner: Warfarin (Coumadin) 7. History of Hypertension: Y 8. Opioid Therapy greater than 6 weeks: Y Opiate Contract Signed: 03/09/17 9. Risk Assessment Tool Provided: 6-MOD RISK 10. Functional Assessment Tool: / 11. Recreational Drug Use: Never Drug Type: Tobacco Use: Never Smoker Tobacco Type: Amount or Packs/day: How Many Years: Alcohol Use: Past use Frequency: Quant:
== END | disposition home or self-care (01) ==
LOC: PAIN 06:57
PROVIDERS: ATTEND Anesthesiology Pain Medicine
DX: M25.562 Pain in left knee (principal); M54.16 Radiculopathy, lumbar region; M79.18 Myalgia, other site; M19.90 Unspecified osteoarthritis, unspecified site; I10 Essential (primary) hypertension; I48.91 Unspecified atrial fibrillation; E11.9 Type 2 diabetes mellitus without complications; E78.00 Pure hypercholesterolemia, unspecified; M10.9 Gout, unspecified; Z98.890 Other specified postprocedural states; Z79.899 Other long term (current) drug therapy; Z79.01 Long term (current) use of anticoagulants; Z79.891 Long term (current) use of opiate analgesic; Z90.49 Acquired absence of other specified parts of digestive tract

== ENCOUNTER → 2021-06-26 | Outpatient (CLI) | payer OTHER ==
[~2021-06-26] VITALS: Ht 185.4 cm; Wt 110.7 kg
[~2021-06-26] MED LIST changes: +ARTHRITIS PAIN100 GM TOP
[2021-06-26 10:32] VITALS: BP 161/81
--- NOTE | 2021-06-26 10:39 | NUR ---
Pain Clinic Assessment: 1. History of Osteoarthritis: B/L KNEE'S History of Rheumatoid Arthritis: DENIES 2. Height: 6 ft. 1 in. 185.4 cm. Weight: 244.0 lb. oz. 110.678 kg. Patient's BMI: 32.2 3. Vital Signs: BP: 161/81 Pulse: 63 Resp: 18 Temp: 02 Sat: 100 ECG Mon: 4. Pain Intensity: 6 5. Fall Risk: Dizziness: N Needs help standing or walking: N Fallen in the last 3 months: N Fall risk comments: 6. Patient on Blood Thinner: Warfarin (Coumadin) 7. History of Hypertension: Y 8. Opioid Therapy greater than 6 weeks: Y Opiate Contract Signed: 03/09/17 9. Risk Assessment Tool Provided: 6-MOD RISK 10. Functional Assessment Tool: / 11. Recreational Drug Use: Never Drug Type: Tobacco Use: Never Smoker Tobacco Type: Amount or Packs/day: How Many Years: Alcohol Use: Past use Frequency: Quant:
== END ==
LOC: PAIN 07:05
PROVIDERS: ATTEND Clinical Nurse Specialist Adult Health
DX: M54.16 Radiculopathy, lumbar region (principal); M19.90 Unspecified osteoarthritis, unspecified site; I48.91 Unspecified atrial fibrillation; Z79.891 Long term (current) use of opiate analgesic; Z79.899 Other long term (current) drug therapy

== ENCOUNTER → 2021-08-14 | Outpatient (CLI) | payer OTHER ==
[~2021-08-14] VITALS: Ht 185.4 cm; Wt 111.1 kg
[2021-08-14 11:04] VITALS: BP 145/77
--- NOTE | 2021-08-14 11:07 | NUR ---
Pain Clinic Assessment: 1. History of Osteoarthritis: B/L KNEE'S History of Rheumatoid Arthritis: DENIES 2. Height: 6 ft. 1 in. 185.4 cm. Weight: 245.0 lb. oz. 111.132 kg. Patient's BMI: 32.3 3. Vital Signs: BP: 145/77 Pulse: 83 Resp: 16 Temp: 02 Sat: 99 ECG Mon: 4. Pain Intensity: 4 5. Fall Risk: Dizziness: N Needs help standing or walking: N Fallen in the last 3 months: N Fall risk comments: 6. Patient on Blood Thinner: Warfarin (Coumadin) 7. History of Hypertension: Y 8. Opioid Therapy greater than 6 weeks: Y Opiate Contract Signed: 03/09/17 9. Risk Assessment Tool Provided: 6-MOD RISK 10. Functional Assessment Tool: 11. Recreational Drug Use: Never Drug Type: Tobacco Use: Never Smoker Tobacco Type: Amount or Packs/day: How Many Years: Alcohol Use: Past use Frequency: Quant:
== END | disposition home or self-care (01) ==
LOC: PAIN 07:05
PROVIDERS: ATTEND Anesthesiology Pain Medicine
DX: M25.562 Pain in left knee (principal); I10 Essential (primary) hypertension; E11.9 Type 2 diabetes mellitus without complications; E78.00 Pure hypercholesterolemia, unspecified; M10.9 Gout, unspecified; I48.91 Unspecified atrial fibrillation; M19.90 Unspecified osteoarthritis, unspecified site; Z98.890 Other specified postprocedural states; Z79.899 Other long term (current) drug therapy

== ENCOUNTER → 2021-10-30 | Outpatient (CLI) | payer OTHER ==
[~2021-10-30] VITALS: Ht 185.4 cm; Wt 111.9 kg
[2021-10-30 10:48] LABS: INR 1.15; PROTIME 12.5 Seconds (10.5-12.1)
[2021-10-30 11:08] VITALS: BP 144/72
--- NOTE | 2021-10-30 11:24 | NUR ---
Pain Clinic Assessment: 1. History of Osteoarthritis: B/L KNEE'S History of Rheumatoid Arthritis: DENIES 2. Height: 6 ft. 1 in. 185.4 cm. Weight: 246.6 lb. oz. 111.857 kg. Patient's BMI: 32.5 3. Vital Signs: BP: 144/72 Pulse: 91 Resp: 18 Temp: 02 Sat: 100 ECG Mon: 4. Pain Intensity: 4 TO 8 (ACTIVITY) 5. Fall Risk: Dizziness: N Needs help standing or walking: N Fallen in the last 3 months: N Fall risk comments: 6. Patient on Blood Thinner: Warfarin (Coumadin) 7. History of Hypertension: Y 8. Opioid Therapy greater than 6 weeks: Y Opiate Contract Signed: 03/09/17 9. Risk Assessment Tool Provided: 6-MOD RISK 10. Functional Assessment Tool: 11. Recreational Drug Use: Never Drug Type: Tobacco Use: Never Smoker Tobacco Type: Amount or Packs/day: How Many Years: Alcohol Use: Past use Frequency: Quant:
== END | disposition home or self-care (01) ==
LOC: PAIN 08:21
PROVIDERS: ATTEND Anesthesiology Pain Medicine
DX: M79.18 Myalgia, other site (principal); M54.16 Radiculopathy, lumbar region; I10 Essential (primary) hypertension; E11.9 Type 2 diabetes mellitus without complications; E78.00 Pure hypercholesterolemia, unspecified; I48.91 Unspecified atrial fibrillation; M10.9 Gout, unspecified; M19.90 Unspecified osteoarthritis, unspecified site; Z79.899 Other long term (current) drug therapy; Z79.891 Long term (current) use of opiate analgesic; Z79.01 Long term (current) use of anticoagulants; Z90.49 Acquired absence of other specified parts of digestive tract